=== PATIENT | male | born 1980 | race Hispanic/Latino ===

== ENCOUNTER 2020-11-15 00:36 | Observation (INO) | payer SELFPAY ==
[~2020-11-15] VITALS: Ht 175.3 cm; Wt 69.8 kg
--- NOTE | 2020-11-15 00:36 | NUR ---
PT TO ROOM VIA EMS STRETCHER FOR BEDSIDE TRIAGE
[2020-11-15 01:05] LABS: HEMATOCRIT 49.2 % (39.0-50.0); IMMATURE GRANULOCYTES 0.1 % (0.0-5.0); MEAN CELL VOLUME 89.3 fL CALC (80.0-100.0); MEAN CORPUSCULAR HGB 30.9 pG CALC (26.0-32.0); MEAN CORPUSCULAR HGB CONC 34.6 g/dL CAL (32.0-36.0); NEUT# 4.67 thou/uL (1.82-7.42); RED BLOOD COUNT 5.51 mill/uL (4.70-6.10); RED CELL DISTRI WIDTH 12.9 % (11.5-15.5)
[2020-11-15 01:22] LABS: ALBUMIN 4.8 g/dL (3.2-5.0); ALKALINE PHOSPHATASE 100 u/l (38-126); AMYLASE 77 u/l (30-110); ANION GAP 13 (6-22 (CALC)); BILIRUBIN, TOTAL 1.9 mg/dL (0.0-1.4); BUN 16 mg/dL (9-20); BUN/CREATININE RATIO 26 (12-20 (CALC)); CARBON DIOXIDE 28 mmol/l (22-30); CHLORIDE 101 mmol/l (95-108); CREATININE 0.6 mg/dL (0.7-1.3); GFR > 60 ML/MIN (>=60 (CALC)); GFR FOR AFR.AMER. > 60 ML/MIN (>=60 (CALC)); LIPASE 56 u/l (23-300); POTASSIUM 3.6 mmol/l (3.5-5.1); SGOT/AST 36 u/l (17-59); SODIUM 139 mmol/l (137-146); TOTAL PROTEIN 8.5 g/dL (6.3-8.2)
[2020-11-15 01:25] LABS: ACT PARTIAL THROMBO TIME 25.6 SECONDS (20.0-32.5); INTERNATIONAL NORMALIZED RATIO 0.9 RATIO (0.7-1.3); PROTHROMBIN TIME 9.5 SECONDS (9.0-12.5)
--- NOTE | 2020-11-15 01:33 | NUR ---
RADIOLOGY AT BEDSIDE FOR XRAYS, IV ACCESS INTACT, RESTING WITH NO S/S OF DISTRESS, CALL GARCIA WITHIN REACH.
[2020-11-15 01:53] LABS: MYOGLOBIN 37 ng/mL (0 - 121)
--- NOTE | 2020-11-15 02:01 | NUR ---
REPORT CALLED TO [facility] ON [facility]. ROOM 269 AND TELE [address]OX [address] ASSIGNED
--- NOTE | 2020-11-15 02:14 | NUR ---
PT ARRIVED TO [facility] VIA WHEELCHAIR ACCOMPANIED BY ER NURSE, PT AMBULATED WITH STEADY GAIT FROM WHEELCHAIR TO BED, PT ORIENTED TO ROOM AND CALL LIGHT, DISCUSSED POC, PT ALERT AND ORIENTED X3. 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 WAS AWAKE AT 2330 WHEN SHARP PAIN TO MIDSTERNUM BEGAN, NON-RADIATING. PT STATES MEDICATION IN ER HELPED SOME, PT HAS PAIN STILL 6/10. DISCUSSED 1X DOSE OF MOTRIN 800 UNTIL NEXT TORADOL DOSE DUE, PT AGREES. NICOTINE PATCH OFFERRED PT ACCEPTED, PLACED TO ALCIRA. TEDS APPLIED. EMS SITE TO LAC, GOOD BLOOD RETURN, FLUSHED WELL. SKIN INTACT. ADMISSION ASSESSMENT COMPLETED, MEAL PROVIDED, CALL LIGHT IN REACH,CONTINUE TO MONITOR.
--- NOTE | 2020-11-15 02:15 | NUR ---
PT TRANSPORTED TO [facility] VIA WHEELCHAIR WITH ALL BELONGINGS WITH PT AND TELE IN PLACE.
[2020-11-15 02:16] VITALS: BP 117/76
[2020-11-15 05:54] VITALS: BP 114/66
--- NOTE | 2020-11-15 06:00 | NUR ---
PT RESTING IN BED, VITALS OBTAINED, PT STATES PAIN 5/10 PT MEDICATED WITH TORADOL, PHLEB AT BEDSIDE FOR AM LABS. CALL LIGHT IN REACH,CONTINUE TO MONITOR.
[2020-11-15 06:41] LABS: CHOLESTEROL HDL RATIO 3.9 (<4.4 (CALC))
[2020-11-15 07:30] VITALS: BP 120/75
--- NOTE | 2020-11-15 07:30 | NUR ---
PT RESTING IN SEMI FOWLERS POSITION .PT IS A/O X3. ASSESSMENT AND VITALS COMPLETED. BP 120/75, HR 78, O2 97% ON ROOM AIR. RESPIRATIONS ARE EVEN AND UNLABORED WITH NO DISTRESS NOTED. LUNG SOUNDS ARE CLEAR. HEART RHYTHM NORMAL WITH TELE IN PLACE. BOWEL SOUNDS ARE ACTIVE. PULSES STRONG. #20G LAC FLUSHED, SITE APPEARS HEALTHY AND PATENT. SKIN INTACT. PT COMPLAINS OF 4/10 RIGHT CHEST PAIN THAT HAS BEEN CONTINIOUS, MORE SO WHEN TOUCHING. PT DENIES OF ANY ADDITIONAL NEEDS. ALL SAFETY PRECAUTIONS ARE IN PLACE WITH CALL LIGHT IN REACH. WILL CONTINUE TO MONITOR
--- NOTE | 2020-11-15 08:00 | NUR ---
RECIEVED REPORT FROM VIV BUTLER
--- NOTE | 2020-11-15 08:25 | NUR ---
WIRELESS ARCHITECT CALLED TO ROOM, PT REQUESTING TO LEAVE. WIRELESS ARCHITECT INFORMED THAT PT IS NOT DC. PT REQUESTING TO AMA. PT INFORMED OF RISK SIGNING SELF AMA. PT VERBALIZED UNDERSTANDING, STATING "I AM GOING TO HIS PRIMARY DOCOTOR WITH HIS MOTHER." SHAREE HICKS TO WITNESS.
--- NOTE | 2020-11-15 08:33 | NUR ---
PT AMA. PT RE-EDUCATED ON RISK OF AMA. PT AGAIN VERBALIZED UNDERSTANDING.
== END 2020-11-15 08:33 | disposition left against medical advice (07) | DRG 313 ==
LOC: ED 00:36 → ED-I 01:42 → MS2 02:00 → ED 02:00 → MS2 08:33
PROVIDERS: Family Medicine; ADMIT Internal Medicine; ATTEND Internal Medicine
DX: R07.9 Chest pain, unspecified (principal); I10 Essential (primary) hypertension; I25.10 Atherosclerotic heart disease of native coronary artery without angina pectoris; F17.210 Nicotine dependence, cigarettes, uncomplicated; Z95.5 Presence of coronary angioplasty implant and graft; Z20.822 Contact with and (suspected) exposure to COVID-19
CPT/HCPCS: G0378; J1650